=== PATIENT | male | born 1930 | race Caucasian/White ===

== ENCOUNTER 2016-08-11 17:07 | Emergency (ER) | payer MEDICARE, OTHER ==
[~2016-08-11 17:07] MED LIST: ACETAMINOPHEN650 M4 PO; AMBIEN5 M1 PO; AMITRIPTYLINE H25 M1 PO; AMITRIPTYLINE H75 M1 PO; ANTIFUNGAL CREA14 G1 TOP; ASPIRIN325 M3 PO; ASPIRIN81 MG PO; ATORVASTATIN CA10 M1 PO; BENADRYL25 MG PO; CIPRO500 M2 PO; CLONAZEPAM1 M1 PO; COREG12.5 MG PO; COREG3.125 M1 PO; COUMADIN2.5 M1 PO; DULCOLAX10 MG PR; ELAVIL75 MG; ENTERIC ASPIRIN81 MG PO; FLOMAX0.4 M1 PO; IBUPROFEN PM C1 EAC1 PO; KLONOPIN1 M1 PO; LEVOTHROID50 MCG; LEVOTHYROXINE; LIPITOR20 MG; MIRALAX17 G2 PO; MIRTAZAPINE30 M2 PO; MUCINEX1200 MG PO; MYTAB GAS80 M1 PO; NORCO 5/325 TAB1 TAB PO; OMEPRAZOLE20 MG PO; PACERONE200 M1 PO; PRILOSEC20 M1 PO; RESTORIL30 MG PO; SIMVASTATIN40 M1 PO; SYNTHROID; SYNTHROID125 MC1 PO; TRAZODONE100 MG; TYLENOL PM EX-1 EACH PO; URECHOLINE25 M2 PO; VITAMIN B122500 MCG PO; VITAMIN D35000 UNI2 PO; ZOCOR40 MG PO
[2016-08-11] MEDS ORDERED: OMEPRAZOLE20 M4 PO (17:16)
[2016-08-11 18:28] LABS: URINE BILIRUBIN SMALL (NEG); URINE BLOOD LARGE (NEG); URINE GLUCOSE (UA) NEGATIVE (NEG); URINE KETONE SMALL (NEG); URINE LEUKOCYTE ESTERASE POSITIVE (NEG); URINE NITRITE POSITIVE (NEG); URINE PH 6.5 (5.0-8.0); URINE PROTEIN MODERATE (NEG); URINE SPECIFIC GRAVITY 1.025 (1.003-1.030)
[2016-08-11 18:30] LABS: URINE APPEARANCE CLOUDY; URINE COLOR BROWN
[2016-08-11 18:47] LABS: URINE AMORPHOUS 2+; URINE BACTERIA 1+; URINE RBC FULL FIELD /[HPF] (0-5); URINE WBC 15-20 /[HPF] (0-5)
[2016-08-11] MEDS ORDERED: KEFLEX500 M4 PO (19:51)
== END 2016-08-11 19:58 ==
LOC: EDMED 17:07
PROVIDERS: Emergency Medicine
PROC: 0T9B70Z Drainage of Bladder with Drainage Device, Via Natural or Artificial Opening (ICD-10-PCS; principal; 2016-08-11)
DX: N39.0 Urinary tract infection, site not specified (principal); I10 Essential (primary) hypertension